=== PATIENT | female | born 1980 | race American Indian/Alaskan Native ===

== ENCOUNTER 2017-03-25 08:00 | Inpatient (IN) | payer MEDICAID, OTHER ==
--- NOTE | 2017-03-25 08:04 | ED PDOC ---
Psych Transfer Clearance - Clearance Statement Clearance Statement: Reviewed vital signs, lab results and transfer papers. Patient clinically stable for psychiatric admission.
[2017-03-25 08:10] VITALS: O2SAT 100
[2017-03-25 08:12] VITALS: BMI 27.4
[2017-03-25] MEDS ORDERED: Magnesium Hydroxide Susp 30 ml UD PO PRN (09:57)
[2017-03-25] MEDS ORDERED: DiphenhydrAMINE 50 mg/ml Inj IM PRN (09:57)
[2017-03-25] MEDS ORDERED: Alum-Mag Hydrox-Simethicone Susp (30 mL) PO PRN (09:57)
--- NOTE | 2017-03-25 10:21 | PCM.PSYCH ---
Initial Psychiatric Evaluation - Initial Psychiatric Evaluation Type of Admission: Voluntary Legal Status: Capacity Chief Complaint (in patient's own words): I am depressed Patient's Reaction to Hospitalization: pt requested help History of Present Illness and Precipitating Events: pt with previous diagnosis of opiate , alcohol, and sedative anxiolytic abuse, pt is currently homeless facing financial difficulties became increasingly depressed, starting using increasing amounts of alcohol and opiates, on day of evaluation used ten bags of opiates starting having suicidal thoughts came to ER seeking help reported poor sleep and appetite, denied command hallucinations, denied active suicidal or homicidal thoughts on the unit Current Medications: Active Medications Generic Name Dose Route Start Last Admin Trade Name Freq PRN Reason Stop Dose Admin Acetaminophen 650 mg 03/25/17 09:57 Tylenol 325mg Tab PO Q4 PRN Pain, moderate (4-7) Al Hydrox/Mg Hydrox/Simethicone 30 ml 03/25/17 09:57 Maalox Plus 30 Ml PO Q4 PRN Dyspepsia Clonidine HCl 0.1 mg 03/25/17 10:00 Catapres PO Q6 MAI Diphenhydramine HCl 50 mg 03/25/17 09:57 Benadryl IM Q6 PRN Extrapyramidal S/S Unable PO Diphenhydramine HCl 50 mg 03/25/17 09:57 Benadryl PO Q6 PRN Extrapyramidal Symptoms Gabapentin 100 mg 03/25/17 13:00 Neurontin PO TID MAI Haloperidol 5 mg 03/25/17 09:57 Haldol PO Q4 PRN Agitation Haloperidol Lactate 5 mg 03/25/17 09:57 Haldol IM Q4 PRN Agitation, Unable to Take PO Lorazepam 2 mg 03/25/17 09:57 Ativan IM Q4 PRN Anxiety/Agitation,Unable PO Lorazepam 2 mg 03/25/17 09:57 Ativan PO Q4 PRN Anxiety/Agitation Magnesium Hydroxide 30 ml 03/25/17 09:57 Milk Of Magnesia PO HS PRN Constipation Quetiapine Fumarate 100 mg 03/25/17 22:00 Seroquel PO HS MAI Past Psychiatric History - Past Psychiatric History Previous Treatment History: Inpatient Explanation of prior treatment: multiple in patient hospitalizations at [facility] for alcohol and opiate detoxification History of ETOH/Drug Use: history of alcohol cocaine opiates and benzodiazepine use Pertinent Medical Hx (Current Medical&Sleep Prob, Allergies): Allergies Allergy/AdvReac Type Severity Reaction Status Date / Time No Known Allergies Allergy Verified 03/25/17 08:12 No Known Home Med 03/24/17 Mental Status Examination - Personal Presentation Personal Presentation: Looks older than stated age Additional comments: unkempt dysphoric - Affect Affect: Depressed - Motor Activity Motor Activity: Psychomotor Retardation - Reliability in Providing Information Reliability in Providing Information: Poor, due to alteration in thoughts, Poor , due to altered mood - Speech Speech: Relevant - Mood Mood: Depressed, Anxious - Formal Thought Process Formal Thought Process: Circumstantial Additional comments: denied any current perceptual disturbances, non elicited - Obsessions/Compulsions Obsessions: No Compulsions: No - Cognitive Functions Orientation: Person Sensorium: Alert Attention/Concentration: Attentive Abstract Thinking: [place] Judgement: Imparied, as evidence by: Poor judgement, Imparied, as evidence by: Lack of insight into illness - Risk Risk: Withdrawal, Diminished functioning - Strength & Assets Inventory Strength & Assets Inventory: Life experience - Limitations Additional comments: homelessness DSM 5 DX - DSM 5 DSM 5 Diagnosis: alcohol induced mood disorder with depressive features alcohol use disorder opiate use disorder depression - Recommended/Plan of Treatment Treatment Recommendations and Plan of Treatment: start clonidine protocol for opiate withdrawal start alcohol withdrawal protocol/ ativan prn monitor pt vitals for symptoms and signs of withdrawal neurontin 100mg tid seroquel 100mg qhs Prognosis: guarded Discharge Plan and Discharge Criteria: no suicidal ideations
--- NOTE | 2017-03-25 18:08 | PCM.BM ---
<Julia Rhodes - Last Filed: 03/25/17 18:06> Treatment Plan Problems - Problems identified on initial assessmt Medication nonadherence Date Initiated: 03/25/17 Time Initiated: 18:07 Assessment reference: NA Status: Active Ineffective Impulse Control Date Initiated: 03/25/17 Time Initiated: 18:08 Assessment reference: AT, NA Status: Active Denial Date Initiated: 03/25/17 Time Initiated: 18:08 Assessment reference: NA Status: Active Knowledge Deficit:Alcohol Use Date Initiated: 03/25/17 Time Initiated: 18:08 Assessment reference: NA Status: Active Treatment assets and liabiliti Patient Assests: cooperative, ADL independent, negotiates basic needs, good interpersonal skills Patient Liabilities: poor support system, substance abuse, other - Milieu Protocol Maintain good personal hygiene: daily Encourage regular showers, daily Remind patient to perform daily oral care, daily Assist patient to perform ADL's Maintain personal safety: daily Educate patient to report safety concerns to staff, daily Monitor environment for contraband/sharps, every shift Educate patient to report safety concerns to staff, every shift Monitor environment for contraband/sharps Medication safety: Monitor for expected outcome, potential side effects: daily, every shift, Assess barriers to learning: daily, every shift, Assess readiness for medication education: daily, every shift Milieu Narrative: start clonidine protocol for opiate withdrawal start alcohol withdrawal protocol/ ativan prn monitor pt vitals for symptoms and signs of withdrawal neurontin 100mg tid seroquel 100mg qhs Discharge/Continuing Care - Treatment Team Participation Patient/Family/SO Statement: start clonidine protocol for opiate withdrawal start alcohol withdrawal protocol/ ativan prn monitor pt vitals for symptoms and signs of withdrawal neurontin 100mg tid seroquel 100mg qhs <Shanti Gomez - Last Filed: 03/29/17 11:03> - Diagnosis (1) Alcohol abuse Status: Acute Interventions: 03/29/17 11:03 motivational therapy (2) Depressed Status: Acute Interventions: 03/29/17 11:03 psychotherapy pharmacotherapy <Sol Knox - Last Filed: 03/29/17 13:54> Treatment assets and liabiliti Patient Assests: adapts well, cooperative, resourceful, self-reliant, ADL independent, negotiates basic needs Patient Liabilities: poor support system, relationship conflicts, substance abuse, other (homeless) Family Contact Family involvement: Famliy/SO not involved Family contact: Patient declines to allow family contact at present Family contact name: Brandy [phone] Family contacted how many times per week?: 2 Family contact comment: Disability Benefits Specialist placed call to patients mother/primary support ( Brandy [phone]) to discuss patients progress on 3NP, anticipated discharge of 03/29 and aftercare. Disability Benefits Specialist left brief message on identified voicemail notifying patients mother that patient is scheduled for discharge on . Disability Benefits Specialist provided call back number and requested return phone call. Disability Benefits Specialist awaiting response. - Outside Agency Agency 1 Care involvment: Other - Goals for Treatment Patient goals for treatment: Patient to continue stabilization on 3NP through medication management and group/supportive therapy. Patient to be encouraged to attend groups regularly to promote self-awareness, sobriety, and improve insight , coping skills and self-esteem. Patient to be provided with referral for appropriate level of aftercare to reduce risk of future hospitalizations and ensure safety in the community. Discharge/Continuing Care - Education Needs Education Needs: Patient Medication, Patient Coping Skills, Patient Anger Management skills, Patient Community resources, Patient Aftercare Safety Plan - Discharge Discharge Criteria: Tolerates medication w/o severe side effects, Free of Suicidal thoughts, Free of paranoid thoughts, Free of agitation, Normal sleep pattern, Ability to care for self, No longer exhibiting s/s of withdrawal, Reduction of target symptoms Discharge to:: Long-Term - Treatment Team Participation Patient/Family/SO Statement: 03/29/17 13:54 Disability Benefits Specialist met with patient to discuss progress on 3NP and aftercare. Patient interested in inpatient substance abuse referrals at time of initial assessment. Patient expressed to service writer on 03/28 that patient was no longer interested in inpatient program. Disability Benefits Specialist provided information and psychoeducation regarding available SUMEET programs. Patient agreeable to [facility] (addictions). Patient agreeable to having referral initiated with [facility] in the event that [facility] does not accept patient. Patient was met with in tx team on 03/29 and requested to be discharged stating that she has to report to Social Security Office on 03/29. Patient did not disclose any appointments/prior commitments at time of assessment or discussion on 03/28. A referral was faxed to [facility] (#[phone] ext:[phone]) on 2017. Risks of longer wait list for intake appointments from the community vs. 3NP explained. It has been strongly encouraged to follow-up with referral upon discharge to obtain appropriate aftercare. Disability Benefits Specialist emphasized importance of compliance with aftercare to reduce risk of future hospitalizations and ensure safety/functioning in the community. Patient expressed understanding of the above and stated "I can follow-up on my own. I promise." It was also strongly encouraged that patient attend AA/NA meetings regularly to promote sobriety and strength community support. Discussed with Family/SO: No Was Patient/Family/SO present at Treatment Team Meeting: Yes
[2017-03-26 01:05] LABS: SQUAMOUS EPITHIAL 14 /hpf (0-5); URINE BACTERIA RARE (<OCC); URINE BILIRUBIN NEGATIVE (NEGATIVE); URINE BLOOD NEGATIVE (NEGATIVE); URINE CLARITY CLOUDY (Clear); URINE COLOR YELLOW (YELLOW); URINE GLUCOSE (UA) NEG (Normal); URINE LEUKOCYTE ESTERASE NEG Leu/uL (Negative); URINE NITRATE NEGATIVE (NEGATIVE); URINE PROTEIN NEGATIVE (NEGATIVE); URINE UROBILINOGEN 0.2-1.0 mg/dL (0.2-1.0)
[2017-03-26 01:07] LABS: BARBITURATES, UR NEGATIVE (NEGATIVE); BENZODIAZEPINES, UR NEGATIVE (NEGATIVE); PHENCYCLIDINE, UR NEGATIVE (NEGATIVE)
[2017-03-26 01:09] LABS: OPIATES, UR POSITIVE (NEGATIVE)
[2017-03-26 07:52] LABS: MEAN CELL VOLUME 86.3 fl (81.0-99.0); MEAN CORPUSCULAR HEMOGLOBIN 27.5 pg (27.0-31.0); MEAN CORPUSCULAR HGB CONC 31.9 g/dL (33.0-37.0); RBC 3.99 Mil/uL (3.80-5.20); RED CELL DISTRIBUTION WIDTH 20.1 % (11.5-14.5); WHITE BLOOD COUNT 5.5 K/uL (4.8-10.8)
[2017-03-26 09:21] LABS: BLOOD UREA NITROGEN 5 mg/dl (7-17); CALCIUM 9.7 mg/dL (8.4-10.2); GFR AFRICAN-AMERICAN > 60; GFR NON-AFRICAN AMERICAN > 60
[2017-03-26] MEDS: Multi Vitamins 15 mL UD Oral Solution PO SCH (09:56)
--- NOTE | 2017-03-26 12:14 | PCM.PYCHPN ---
Psychiatric Progress Note - Psychiatric Progress Note Patient seen today, length of contact: PT EVALUATED DISCUSSED WITH TEAM CHART REVIEWED Patient Chief Complaint: I AM tired and depressed because of the withdrawal Problems Identified/Issues Discussed: pt seen in bed, depressed mood and affect, low energy and anhedonia no changes in sleep or appetite no reported side effects of medications denied any current suicidal or homicidal ideations denied perceptual disturbances Medical Problems: multiple in patient hospitalizations at [facility] for alcohol and opiate detoxification DSM 5 Symptoms Update: alcohol induced mood disorder with depressive features during withdrawal alcohol use disorder opiate use disorder Medication Change: No Medical Record Reviewed: Yes Mental Status Examination - Cognitive Function Orientation: Person, Place Attention: Poor Concentration: Poor Association: WNL Fund of Knowledge: Poor Decription of patient's judgement and insights: impaired insight and poor judgment - Mood Mood: Depressed, Anxious - Affect Affect: Constricted, Depressed - Speech Speech: Soft - Formal Thought Process Formal Thought Process: Circumstantial Psychotic Thoughts and Behaviors: pt denied any current perceptual disturbances - Suicidal Ideation Suicidal Ideation: No - Homicidal Ideation Homicidal Ideation: No Goal/Treatment Plan - Goal/Treatment Plan Need for Continued Stay: Severe depression anxiety, Discharge may exacerbated symptoms Progress Toward Problem(s) and Goals/Treatment Plan: continue clonidine protocol for opiate withdrawal alcohol withdrawal protocol/ ativan prn monitor pt vitals for symptoms and signs of withdrawal neurontin 100mg tid seroquel 100mg qhs Estimated Date of D/C: 03/31/17
--- NOTE | 2017-03-26 20:28 | CP.PCM.CON ---
History of Present Illness - History of Present Illness History of Present Illness: Reason for consult: per hospital protocol HPI: 37 year old female admitted to psych for opioid induced mood disorder. Patient has history of hypertension for which she is prescribed clonidine, however patient admits she is noncompliant. HD stable NAD. ROS: Per HPI, all other systems reviewed and neg PMH: hypertension PSH: C/S x2 FH: cancer SH: admits to tobacco use appx 5 cigarettes daily for 20 years, + heroin last use yesterday, 1 pint of ETOH daily NKDA Vitals Reviewed GEN: WDWN, ALERT, COOPERATIVE HEENT: NCAT, PERRL, EOMI HEART: RRR, +S1S2, NO MRG LUNG: CTAB, NO WRR ABD: SOFT, NT, ND, NO HSM, NO MASSES EXT: NORMAL PEDAL PULSES, GOOD CAPILLARY REFILL NEURO: AAOX3, STRENGTH EQUAL BILATERAL UPPER AND LOWER EXTREMITIES SKIN: WARM, DRY PSYCH: NORMAL MOOD, NORMAL AFFECT LABS Most Recent Lab Values WBC 5.5 K/uL (4.8-10.8) 03/26/17 07:20 RBC 3.99 Mil/uL (3.80-5.20) 03/26/17 07:20 Hgb 11.0 g/dL (12.0-16.0) L 03/26/17 07:20 Hct 34.5 % (34.0-47.0) 03/26/17 07:20 MCV 86.3 fl (81.0-99.0) 03/26/17 07:20 MCH 27.5 pg (27.0-31.0) 03/26/17 07:20 MCHC 31.9 g/dL (33.0-37.0) L 03/26/17 07:20 RDW 20.1 % (11.5-14.5) H 03/26/17 07:20 Plt Count 285 K/uL (130-400) 03/26/17 07:20 Sodium 140 mmol/l (132-148) 03/26/17 07:20 Potassium 3.6 MMOL/L (3.6-5.0) 03/26/17 07:20 Chloride 100 mmol/L (98-107) 03/26/17 07:20 Carbon Dioxide 31 mmol/L (22-30) H 03/26/17 07:20 Anion Gap 13 (10-20) 03/26/17 07:20 BUN 5 mg/dl (7-17) L 03/26/17 07:20 Creatinine 0.8 mg/dl (0.7-1.2) 03/26/17 07:20 Est GFR ( Amer) > 60 03/26/17 07:20 Est GFR (Non-Af Amer) > 60 03/26/17 07:20 Random Glucose 107 mg/dL (65-105) H 03/26/17 07:20 Calcium 9.7 mg/dL (8.4-10.2) 03/26/17 07:20 Triglycerides 55 mg/DL (0-149) 03/26/17 07:20 Cholesterol 198 mg/dL (0-199) 03/26/17 07:20 LDL Cholesterol Direct 58 mg/dL (0-129) 03/26/17 07:20 HDL Cholesterol 130 MG/DL (30-70) H 03/26/17 07:20 TSH 3rd Generation 1.14 mIU/ML (0.46-4.68) 03/26/17 07:20 Urine Color Yellow (YELLOW) 03/25/17 22:14 Urine Clarity Cloudy (Clear) 03/25/17 22:14 Urine pH 7.0 (5.0-8.0) 03/25/17 22:14 Ur Specific [place] 1.005 (1.003-1.030) 03/25/17 22:14 Urine Protein Negative mg/dL (NEGATIVE) 03/25/17 22:14 Urine Glucose (UA) Neg mg/dL (Normal) 03/25/17 22:14 Urine Ketones Negative mg/dL (NEGATIVE) 03/25/17 22:14 Urine Blood Negative (NEGATIVE) 03/25/17 22:14 Urine Nitrate Negative (NEGATIVE) 03/25/17 22:14 Urine Bilirubin Negative (NEGATIVE) 03/25/17 22:14 Urine Urobilinogen 0.2-1.0 mg/dL (0.2-1.0) 03/25/17 22:14 Ur Leukocyte Esterase Neg [place]/uL (Negative) 03/25/17 22:14 Urine RBC (Auto) < 1 /hpf (0-3) 03/25/17 22:14 Urine Microscopic WBC 1 /hpf (0-5) 03/25/17 22:14 Ur Squamous Epith Cells 14 /hpf (0-5) H 03/25/17 22:14 Urine Bacteria Rare (<OCC) 03/25/17 22:14 Urine Opiates Screen Positive (NEGATIVE) H 03/25/17 23:21 Urine Methadone Screen Negative (NEGATIVE) 03/25/17 23:21 Ur Barbiturates Screen Negative (NEGATIVE) 03/25/17 23:21 Ur Phencyclidine Scrn Negative (NEGATIVE) 03/25/17 23:21 Ur Amphetamines Screen Negative (NEGATIVE) 03/25/17 23:21 U Benzodiazepines Scrn Negative (NEGATIVE) 03/25/17 23:21 U Oth Cocaine Metabols Positive (NEGATIVE) H 03/25/17 23:21 U Cannabinoids Screen Negative (NEGATIVE) 03/25/17 23:21 ASSESSMENT AND PLAN 37 year old female admitted to psych for opioid induced mood disorder. Patient has history of hypertension for which she is prescribed clonidine, however patient admits she is noncompliant. HD stable NAD. HYPERTENSION Pt reports she is on Clonidine at home, however is noncomplaint pt currently on clonidine for withdrawal sx Past Patient History - Infectious Disease Hx of Infectious Diseases: None - Past Medical History & Family History Past Medical History?: Yes - Past Social History Smoking Status: Light Smoker < 10 Cigarettes Daily - CARDIAC Hx Cardiac Disorders: No Hx Hypertension: Yes - PULMONARY Hx Respiratory Disorders: No - NEUROLOGICAL Hx Neurological Disorder: No - HEENT Hx HEENT Problems: No - RENAL Hx Chronic Kidney Disease: No - ENDOCRINE/METABOLIC Hx Endocrine Disorders: No - HEMATOLOGICAL/ONCOLOGICAL Hx Hepatitis C: Yes (info from patient) - INTEGUMENTARY Hx Dermatological Problems: No - MUSCULOSKELETAL/RHEUMATOLOGICAL Hx Musculoskeletal Disorders: No Hx Falls: No - GASTROINTESTINAL Hx Pancreatitis: Yes - GENITOURINARY/GYNECOLOGICAL Hx Sexually Transmitted Disorders: Yes (genital herpes) - PSYCHIATRIC Hx Bipolar Disorder: Yes Hx Depression: Yes Hx Substance Use: Yes - SURGICAL HISTORY Hx Surgeries: Yes Hx Section: Yes (X2) - ANESTHESIA Hx Anesthesia: Yes Hx Anesthesia Reactions: No Hx Malignant Hyperthermia: No Meds Allergies/Adverse Reactions: Allergies Allergy/AdvReac Type Severity Reaction Status Date / Time No Known Allergies Allergy Verified 03/25/17 08:12 - Medications Medications: Current Medications Acetaminophen (Tylenol 325mg Tab) 650 mg PO Q4 PRN PRN Reason: Pain, moderate (4-7) Last Admin: 03/25/17 22:01 Dose: 650 mg Al Hydrox/Mg Hydrox/Simethicone (Maalox Plus 30 Ml) 30 ml PO Q4 PRN PRN Reason: Dyspepsia Clonidine HCl (Catapres) 0.1 mg PO Q8 [facility] Last Admin: 03/26/17 17:17 Dose: 0.1 mg Diphenhydramine HCl (Benadryl) 50 mg IM Q6 PRN PRN Reason: Extrapyramidal S/S Unable PO Diphenhydramine HCl (Benadryl) 50 mg PO Q6 PRN PRN Reason: Extrapyramidal Symptoms Last Admin: 03/26/17 00:21 Dose: 50 mg Folic Acid (Folic Acid) 1 mg PO DAILY [facility] Last Admin: 03/26/17 09:56 Dose: 1 mg Gabapentin (Neurontin) 100 mg PO TID [facility] Last Admin: 03/26/17 17:17 Dose: 100 mg Haloperidol (Haldol) 5 mg PO Q4 PRN PRN Reason: Agitation Last Admin: 03/26/17 00:21 Dose: 5 mg Haloperidol Lactate (Haldol) 5 mg IM Q4 PRN PRN Reason: Agitation, Unable to Take PO Lorazepam (Ativan) 2 mg IM Q4 PRN PRN Reason: Anxiety/Agitation,Unable PO Lorazepam (Ativan) 2 mg PO Q4 PRN PRN Reason: Anxiety/Agitation Lorazepam (Ativan) 1 mg PO TID [facility] Last Admin: 03/26/17 17:17 Dose: 1 mg Magnesium Hydroxide (Milk Of Magnesia) 30 ml PO HS PRN PRN Reason: Constipation Multivitamins/Vitamin C (Multi-Delyn Liquid) 15 ml PO DAILY [facility] Last Admin: 03/26/17 09:56 Dose: 15 ml Quetiapine Fumarate (Seroquel) 100 mg PO HS [facility] Last Admin: 03/25/17 21:15 Dose: 100 mg Thiamine HCl (Vitamin B1 Tab) 50 mg PO DAILY [facility] Last Admin: 03/26/17 09:56 Dose: 50 mg Results - Vital Signs Recent Vital Signs: Last Vital Signs Temp 98.2 F 03/26/17 17:00 Pulse 89 03/26/17 17:17 Resp 20 03/26/17 17:00 BP 132/97 H 03/26/17 17:17 Pulse Ox 100 03/25/17 08:10 - Labs Result Diagrams: 03/26/17 07:20 03/26/17 07:20 Labs: Laboratory Results - last 24 hr 03/25/17 03/25/17 03/26/17 22:14 23:21 07:20 WBC RBC Hgb Hct MCV MCH MCHC RDW Plt Count Sodium Potassium Chloride Carbon Dioxide Anion Gap BUN Creatinine Est GFR ( Amer) Est GFR (Non-Af Amer) Random Glucose Calcium Triglycerides 55 Cholesterol 198 LDL Cholesterol Direct 58 HDL Cholesterol 130 H TSH 3rd Generation 1.14 Urine Color Yellow Urine Clarity Cloudy Urine pH 7.0 Ur Specific [place] 1.005 Urine Protein Negative Urine Glucose (UA) Neg Urine Ketones Negative Urine Blood Negative Urine Nitrate Negative Urine Bilirubin Negative Urine Urobilinogen 0.2-1.0 Ur Leukocyte Esterase Neg Urine RBC (Auto) < 1 Urine Microscopic WBC 1 Ur Squamous Epith Cells 14 H Urine Bacteria Rare Urine Opiates Screen Positive H Urine Methadone Screen Negative Ur Barbiturates Screen Negative Ur Phencyclidine Scrn Negative Ur Amphetamines Screen Negative U Benzodiazepines Scrn Negative U Oth Cocaine Metabols Positive H U Cannabinoids Screen Negative 03/26/17 03/26/17 07:20 07:20 WBC 5.5 RBC 3.99 Hgb 11.0 L Hct 34.5 MCV 86.3 MCH 27.5 MCHC 31.9 L RDW 20.1 H Plt Count 285 Sodium 140 Potassium 3.6 Chloride 100 Carbon Dioxide 31 H Anion Gap 13 BUN 5 L Creatinine 0.8 Est GFR ( Amer) > 60 Est GFR (Non-Af Amer) > 60 Random Glucose 107 H Calcium 9.7 Triglycerides Cholesterol LDL Cholesterol Direct HDL Cholesterol TSH 3rd Generation Urine Color Urine Clarity Urine pH Ur Specific [place] Urine Protein Urine Glucose (UA) Urine Ketones Urine Blood Urine Nitrate Urine Bilirubin Urine Urobilinogen Ur Leukocyte Esterase Urine RBC (Auto) Urine Microscopic WBC Ur Squamous Epith Cells Urine Bacteria Urine Opiates Screen Urine Methadone Screen Ur Barbiturates Screen Ur Phencyclidine Scrn Ur Amphetamines Screen U Benzodiazepines Scrn U Oth Cocaine Metabols U Cannabinoids Screen
[2017-03-27 09:35] VITALS: RESP 18
--- NOTE | 2017-03-27 11:42 | PCM.PYCHPN ---
Psychiatric Progress Note - Psychiatric Progress Note Patient seen today, length of contact: PT EVALUATED DISCUSSED WITH TEAM CHART REVIEWED Patient Chief Complaint: I stopped going to my program five years agol Problems Identified/Issues Discussed: pt seen in bed, better eye contact and more communication with continuity writer pt reported she relapsed five years ago and has not been in treatment since then , discussed with pt starting inpatient rehab on discharge, pt agreed continues to depressed mood and affect, low energy and anhedonia no changes in sleep or appetite no reported side effects of medications denied any current suicidal or homicidal ideations denied perceptual disturbances Medical Problems: multiple in patient hospitalizations at [facility] for alcohol and opiate detoxification DSM 5 Symptoms Update: alcohol induced mood disorder with depressive features alcohol use disorder opiate use disorder hx of bipolar disorder Medication Change: No Medical Record Reviewed: Yes Mental Status Examination - Cognitive Function Orientation: Person, Place Attention: Poor Concentration: Poor Association: WNL Fund of Knowledge: Poor Decription of patient's judgement and insights: impaired insight and poor judgment - Mood Mood: Depressed, Anxious - Affect Affect: Constricted, Depressed - Speech Speech: Soft - Formal Thought Process Formal Thought Process: Circumstantial Psychotic Thoughts and Behaviors: pt denied any current perceptual disturbances - Suicidal Ideation Suicidal Ideation: No - Homicidal Ideation Homicidal Ideation: No Goal/Treatment Plan - Goal/Treatment Plan Need for Continued Stay: Severe depression anxiety, Discharge may exacerbated symptoms Progress Toward Problem(s) and Goals/Treatment Plan: continue clonidine protocol for opiate withdrawal ativan prn for alcohol with drawl monitor pt vitals for symptoms and signs of withdrawal neurontin 100mg tid seroquel 100mg qhs motivational and group therapy referral to rehab program on discharge Estimated Date of D/C: 03/31/17
[2017-03-27] MEDS: Multi Vitamins 15 mL UD Oral Solution PO SCH (13:58)
[2017-03-28] MEDS: Multi Vitamins 15 mL UD Oral Solution PO SCH (08:29)
--- NOTE | 2017-03-28 10:31 | PCM.PYCHPN ---
Psychiatric Progress Note - Psychiatric Progress Note Patient seen today, length of contact: PT EVALUATED DISCUSSED WITH TEAM CHART REVIEWED Patient Chief Complaint: I am a little better today Problems Identified/Issues Discussed: pt on evaluation , less isolative, seen in day room, reported feeling less depressed, her affect appears brighter encouraged pt to attend groups discussed with pt starting [facility] outpatient program on discharge, pt agreed, pt denied any current suicidal or homicidal ideations denied perceptual disturbances. no reported side effects of medications Medical Problems: multiple in patient hospitalizations at [facility] for alcohol and opiate detoxification DSM 5 Symptoms Update: alcohol induced mood disoreder with depressive features alcohol use disorder opiate use disorder bhx of bipolar disorder depressed Medication Change: No Medical Record Reviewed: Yes Mental Status Examination - Cognitive Function Orientation: Person, Place Attention: WNL Concentration: WNL Association: WNL Fund of Knowledge: Poor Decription of patient's judgement and insights: impaired insight and poor judgment - Mood Mood: Depressed, Anxious - Affect Affect: Constricted, Depressed - Speech Speech: Soft - Formal Thought Process Formal Thought Process: Circumstantial Psychotic Thoughts and Behaviors: pt denied any current perceptual disturbances - Suicidal Ideation Suicidal Ideation: No - Homicidal Ideation Homicidal Ideation: No Goal/Treatment Plan - Goal/Treatment Plan Need for Continued Stay: Severe depression anxiety, Discharge may exacerbated symptoms Progress Toward Problem(s) and Goals/Treatment Plan: Follow up with hospitalist anisha MCGOVERN neurontin 100mg tid seroquel 200mg qhs motivational and group therapy referral to [facility] program on discharge Estimated Date of D/C: 03/31/17
--- NOTE | 2017-03-28 18:42 | CP.PCM.CON ---
History of Present Illness - History of Present Illness History of Present Illness: 37 yo f consulted for malodorous vagina and discharge. Pt states that she has been experiencing vaginal odor, "like something is " for approximately a week soon after intercourse. She also shares of discharge: yellow to white to now yellow mixed with blood. Denies burning of of the vagina or dysuria. Positive for pressure like pelvic pain and increased urinary frequency. History of trichomoniasis 1 year ago. Untreated due to financial difficulty. LMP: 02/19/2017 regular monthly cycles obhx: ft 2003 female uncomplicated; c/s 2004 ft female uncomplicated; c/s 2009 32 wks male; SAB 2012 gyne: hx of trich; pap neg medhx: bipolar disorder, htn famhx: breast cancer, uterine cancer, dm, htn surg: c/s x2 soc: smokes 5 cigarettes a day for 21 years; drinks about 2 beers a week; heroin used on rx: seroquel nkda Denies: cp/n/v Gen: alert and oriented cardiac: s1 s2 no murmurs lungs: clear bilaterally, no wheezing abodmen: soft, non tender CVT positive on R no calf tenderness Speculum exam: Vaginal canal with white discharge, no lesions seen, nonmalodorous, 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 Case dw Dr. Maximilian Garcia MD PGY1 Past Patient History - Infectious Disease Hx of Infectious Diseases: None - Past Medical History & Family History Past Medical History?: Yes - Past Social History Smoking Status: Light Smoker < 10 Cigarettes Daily - CARDIAC Hx Cardiac Disorders: No Hx Hypertension: Yes - PULMONARY Hx Respiratory Disorders: No - NEUROLOGICAL Hx Neurological Disorder: No - HEENT Hx HEENT Problems: No - RENAL Hx Chronic Kidney Disease: No - ENDOCRINE/METABOLIC Hx Endocrine Disorders: No - HEMATOLOGICAL/ONCOLOGICAL Hx Hepatitis C: Yes (info from patient) - INTEGUMENTARY Hx Dermatological Problems: No - MUSCULOSKELETAL/RHEUMATOLOGICAL Hx Musculoskeletal Disorders: No Hx Falls: No - GASTROINTESTINAL Hx Pancreatitis: Yes - GENITOURINARY/GYNECOLOGICAL Hx Sexually Transmitted Disorders: Yes (genital herpes) - PSYCHIATRIC Hx Bipolar Disorder: Yes Hx Depression: Yes Hx Substance Use: Yes - SURGICAL HISTORY Hx Surgeries: Yes Hx Section: Yes (X2) - ANESTHESIA Hx Anesthesia: Yes Hx Anesthesia Reactions: No Hx Malignant Hyperthermia: No Meds Allergies/Adverse Reactions: Allergies Allergy/AdvReac Type Severity Reaction Status Date / Time No Known Allergies Allergy Verified 03/25/17 08:12 - Medications Medications: Current Medications Al Hydrox/Mg Hydrox/Simethicone (Maalox Plus 30 Ml) 30 ml PO Q4 PRN PRN Reason: Dyspepsia Clonidine HCl (Catapres) 0.1 mg PO Q8 PRN PRN Reason: Opiate reversal Diphenhydramine HCl (Benadryl) 50 mg IM Q6 PRN PRN Reason: Extrapyramidal S/S Unable PO Diphenhydramine HCl (Benadryl) 50 mg PO Q6 PRN PRN Reason: Extrapyramidal Symptoms Last Admin: 03/27/17 22:47 Dose: 50 mg Folic Acid (Folic Acid) 1 mg PO DAILY [facility] Last Admin: 03/28/17 08:29 Dose: 1 mg Gabapentin (Neurontin) 100 mg PO TID [facility] Last Admin: 03/28/17 18:15 Dose: 100 mg Haloperidol (Haldol) 5 mg PO Q4 PRN PRN Reason: Agitation Last Admin: 03/27/17 22:47 Dose: 5 mg Haloperidol Lactate (Haldol) 5 mg IM Q4 PRN PRN Reason: Agitation, Unable to Take PO Ibuprofen (Motrin Tab) 600 mg PO Q6 PRN PRN Reason: Pain, moderate (4-7) Last Admin: 03/28/17 08:29 Dose: 600 mg Lorazepam (Ativan) 2 mg IM Q4 PRN PRN Reason: Anxiety/Agitation,Unable PO Lorazepam (Ativan) 1 mg PO TID PRN PRN Reason: Anxiety Magnesium Hydroxide (Milk Of Magnesia) 30 ml PO HS PRN PRN Reason: Constipation Multivitamins/Vitamin C (Multi-Delyn Liquid) 15 ml PO DAILY [facility] Last Admin: 03/28/17 08:29 Dose: 15 ml Quetiapine Fumarate (Seroquel) 200 mg PO HS [facility] Last Admin: 03/27/17 21:14 Dose: 200 mg Thiamine HCl (Vitamin B1 Tab) 50 mg PO DAILY [facility] Last Admin: 03/28/17 08:29 Dose: 50 mg Results - Vital Signs Recent Vital Signs: Last Vital Signs Temp 98.2 F 03/28/17 17:00 Pulse 65 03/28/17 17:00 Resp 18 03/28/17 17:00 BP 139/105 H 03/28/17 17:00 Pulse Ox 100 03/25/17 08:10 - Labs Result Diagrams: 03/26/17 07:20 03/26/17 07:20
[2017-03-29] MEDS: Multi Vitamins 15 mL UD Oral Solution PO SCH (08:46)
[2017-03-29 09:11] VITALS: BP 128/88; PULSE 78; TEMP 98.4
--- NOTE | 2017-03-29 11:31 | PCM.PYCHDC ---
Mental Status Examination - Mental Status Examination Orientation: Person, Place, Situation Memory: Intact Mood: Neutral Affect: Broad Speech: Appropriate Attention: WNL Concentration: WNL Association: WNL Fund of Knowledge: WNL Formal Thought Process: Circumstantial Description of patient's judgement and insight: partial insight and poor judgment Psychotic Thoughts and Behaviors: pt denied any current perceptual disturbances Suicidal Ideation: No Current Homicidal Ideation?: No Discharge Summary - Discharge Note Reason for Hospitalization: pt with previous diagnosis of opiate , alcohol, and sedative anxiolytic abuse, pt is currently homeless facing financial difficulties became increasingly depressed, starting using increasing amounts of alcohol and opiates, on day of evaluation used ten bags of opiates starting having suicidal thoughts came to ER seeking help reported poor sleep and appetite, denied command hallucinations, denied active suicidal or homicidal thoughts on the unit Laboratory Data: Abnormal Lab Results 03/28/17 19:24 Urine HCG, Qual Negative Consultations:: List each consultation separately and include: 1. Reason for request. 2. Findings. 3. Follow-up Summary of Hospital Course include:: 1. Description of specific treatment plan utilized for patients during their course of treatmen. 2. Summarize the time- course for resolution of acute symptoms and/or regressed behaviors. 3. Describe issues identified and worked on during hospitalization. 4. Describe medication utilized. 5. Describe medical problems identified and treated. 6. Reassessment of suicide risk Summary of Hospital Course: pt on admission was started on clonidine protocol for opiate withdrawal and ativan prn for alcohol withdrawal neurontin 100mg tid was started for anxiety seroquel was stated for depression and mood stabilization vital signs monitored and pt was monitored for symptoms and signs of withdrawal pt was offered motivational, group and supportive therapy no reported side effects of medication on discharge pt was educated about risk of relapse and possible accidental overdose on discharge pt mental status was stable, denied any suicidal or homicidal ideations denied perceptual disturbances referral to [facility] meetings - Diagnosis (1) Alcohol abuse Current Visit: No Status: Acute (2) Depressed Current Visit: No Status: Acute - Final Diagnosis (DSM 5) Condition upon Discharge: GOOD DSM 5: 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
== END 2017-03-29 12:35 | disposition home or self-care (01) | DRG 745 ==
LOC: H.ER 08:00 → H.PSYCH 08:02
PROVIDERS: ADMIT Psychiatry & Neurology Psychiatry; ATTEND Psychiatry & Neurology Psychiatry
PROC: GZHZZZZ Group Psychotherapy (ICD-10-PCS; principal; 2017-03-28)
PROC: GZ51ZZZ Individual Psychotherapy, Behavioral (ICD-10-PCS; 2017-03-28)
DX: F10.14 Alcohol abuse with alcohol-induced mood disorder (principal); F11.10 Opioid abuse, uncomplicated; R45.851 Suicidal ideations; F17.210 Nicotine dependence, cigarettes, uncomplicated; A59.9 Trichomoniasis, unspecified; F13.10 Sedative, hypnotic or anxiolytic abuse, uncomplicated; F31.9 Bipolar disorder, unspecified; F41.9 Anxiety disorder, unspecified; I10 Essential (primary) hypertension; Z59.0 Homelessness; Z91.19 Patient's noncompliance with other medical treatment and regimen; Z80.3 Family history of malignant neoplasm of breast; Z80.8 Family history of malignant neoplasm of other organs or systems; Z83.3 Family history of diabetes mellitus